=== PATIENT | male | born 1950 | race Caucasian/White ===

== ENCOUNTER 2019-03-03 18:03 | Inpatient (IN) ==
--- NOTE | 2019-03-03 18:34 | PROVIDER DOCUMENTATION ---
HPI-General Adult - General Chief Complaint: Hip Injury Stated Complaint: DIZZY, FALLING Time Seen by Provider: 03/03/19 18:26 Source: patient Allergies/Adverse Reactions: Patient Allergies Allergy/AdvReac Type Severity Reaction Status Date / Time streptomycin Allergy RASH Verified 03/03/19 18:46 Home Medications: Home Medication List Medication Instructions Recorded Confirmed Last Taken Type Aspirin [Aspirin EC] 81 mg PO DAILY 03/03/19 03/03/19 Unknown History Loratadine [Claritin] 10 mg PO DAILY 03/03/19 03/03/19 Unknown History Metformin [Glucophage] 500 mg PO BID 03/03/19 03/03/19 Unknown History Sertraline HCl 100 mg PO BID 03/03/19 03/03/19 Unknown History Simvastatin 40 mg PO DAILY 03/03/19 03/03/19 Unknown History - History of Present Illness -Gen Adult Nature of Presenting Problems: This is a 68yo male who presents with CC of falls and sinus congestion. The patient reports that he was brought her by his friend who was worried because the patient had two falls on their boat today. The patient reports that he was trying to get up on the dock and fell on his back he denies any head injury or LOC. The patient reported that he just lost his balance. Originally he was walking abnormally per his friend, but now is walking normally. The patient does report some sinus congestions and cough with green sputum that has been ongoing for about 3 weeks. He does report a fever of about 100.3, and intermittent shortness of breath. He is currently non-toxic appearing. Review of Systems - Adult - REVIEW OF SYSTEMS - ADULT Constitutional: reports: fever Eyes: reports: no symptoms reported Ears, Nose, Mouth & Throat: reports: sinus problem (congestion) Cardiovascular: reports: no symptoms reported. denies: chest pain Respiratory: reports: other (occasional shortness of breath) Gastrointestinal: reports: no symptoms reported. denies: abdominal pain Genitourinary: reports: no symptoms reported. denies: flank pain Musculoskeletal: reports: no symptoms reported Integumentary: reports: no symptoms reported Neurological: reports: dizziness/vertigo, headache/migraines, loss of balance Psychiatric: reports: no symptoms reported Endocrine: reports: no symptoms reported Hematologic/Lymphatic: reports: no symptoms reported Allergic/Immunologic: reports: no symptoms reported Past History - Adult - PAST MEDICAL HISTORY-ADULT Review of Records: reports: Old Records Reviewed Major Childhood Illnesses: reports: denies history Cardiovascular: reports: hyperlipidemia Respiratory: reports: denies history Gastrointestinal: reports: denies history Obstetrical/Gynecological: reports: denies history Genitourinary: reports: retention, other (BPH) Musculoskeletal: reports: denies history Neurological: reports: denies history Endocrine/Immune: reports: Diabetes Other Conditions: reports: denies history - FAMILY HISTORY Family History: reviewed, not pertinent Physical Exam-General - PHYSICAL EXAM-ADULT Initial Vital Signs Reviewed: Yes - CONSTITUTIONAL General Appearance: appears well, alert, no apparent distress - EYES Eyes: PERRL/EOMI. negative: conjuctival exudate, sclera injected, scleral icterus - HEAD, EARS, NOSE, MOUTH & THROAT HENMT: normocephalic/atraumatic, moist mucous membranes, TMs normal - NECK Neck: negative: meningismus - RESPIRATORY Respiratory: lungs clear, normal breath sounds. negative: rales, rhonchi, wheezing - CARDIOVASCULAR Cardiovascular: regular rate, rhythm, no edema - GASTROINTESTINAL (ABDOMEN) Abdominal Exam: non tender, soft - MUSCULOSKELETAL Extremity: other (strength 5/5 in all extremities, mild tenderness of the right hip.) - SKIN Integumentary: normal color, warm/dry - NEUROLOGIC Neurologic: website admin II-XII nml as tested. negative: facial droop, focal weakness, motor weakness, sensory deficit - PSYCHIATRIC Psych/Mental Status: normal mood/affect, normal thought content, normal thought process Progress - PLAN OF CARE/RESULTS Progress/Plan/Lab Results: Vital Signs - 8 hr 03/03/19 18:07 Temperature 100.9 F H Pulse Rate 100 H Respiratory Rate 16 Blood Pressure 159/81 O2 Sat by Pulse Oximetry 94 L Orders Category Date Time Status CT HEAD W/O CONTRAST [CT] Stat Exams 03/03/19 18:25 Ordered ELBOW 2 VIEWS RIGHT [RAD] Stat Exams 03/03/19 18:26 Ordered XRAY PELVIS W/HIP 2-3VW LT [RAD] Stat Exams 03/03/19 18:26 Ordered Result Diagrams: 03/03/19 20:41 03/03/19 20:41 - EKG 1 Time of EKG reading by physician:: 20:16 EKG Read and Signed by:: Sb Phillips EKG Interpretation (*Must complete 3 of following elements*): Abnormal Rate: 94 Rhythm: sinus with multiple PVCs [place]: normal QRS: normal LA Interval: normal ST Wave: non-specific ST changes Prior EKG Comparison: no prior EKG Comments: mulitple PVCs with concern for bigeminy 2 Time of EKG reading by physician:: 20:14 EKG Read and Signed by:: Sb Phillips EKG Interpretation (*Must complete 3 of following elements*): Abnormal Rate: 94 Rhythm: sinus with PVCx [place]: normal QRS: normal, PVC's LA Interval: normal ST Wave: non-specific ST changes Comments: sinus with mulitple PVCs concerning for bigeminy Departure - Departure Date of Disposition Decision: 03/03/19 Time of Disposition Decision: 21:53 DIAGNOSIS: Symptomatic PVCs, Dizziness Fall Qualifiers: Encounter type: initial encounter Qualified Code(s): W19.XXXA - Unspecified fall, initial encounter Disposition: ADMITTED INPATIENT 09 Certified Medical Emergency: Emergent Condition: Fair Referrals and Follow-Ups: Jacoby Gibson MD [Primary Care Provider] - - Critical Care Note This patient required my direct & personal management of CC.: No Attestation - Physician/ ALLIE Attestation Patient care was provided by Advanced Practice Provider:: No The physician spent face to face time with patient:: Yes Advanced Practice Provider documentation review:: Supervising physician onsite and consulted in the evaluation and care of this patient. The physician did have a face to face encounter with the patient.
--- NOTE | 2019-03-03 18:58 | Diag Imaging Result Doc PS360 ---
EXAM: CT HEAD W/O CONTRAST - 03/03/2019 HISTORY: dizziness, fall TECHNIQUE: CT head without contrast COMPARISON: None. FINDINGS: There is no evidence of intracranial hemorrhage, mass effect, midline shift, or hydrocephalus. There are minimal chronic appearing microvascular ischemic changes. There is no evidence of recent infarct, although acute infarcts may not be immediately visible. There is no evidence of skull fracture. IMPRESSION: No visible acute intracranial abnormality. No hemorrhage or mass effect. This exam was performed using automated exposure control, adjustment of mA or kV according to patient size, and/or use of iterative reconstruction technique. Electronically signed by Peter King 03/03/2019 6:56 PM
--- NOTE | 2019-03-03 19:02 | Diag Imaging Result Doc PS360 ---
EXAM: XRAY PELVIS W/HIP 2-3VW LT - 03/03/2019 HISTORY: fall TECHNIQUE: Left hip and pelvis three views COMPARISON: None. FINDINGS: There is no fracture or dislocation identified. There are oval densities at the midline soft tissue pelvis which presumably relate to dense fecal debris in the rectum, although urinary bladder stones cannot be entirely excluded. IMPRESSION: No evidence of fracture or dislocation. Electronically signed by Peter King 03/03/2019 7:00 PM
--- NOTE | 2019-03-03 19:29 | Diag Imaging Result Doc PS360 ---
EXAM: ELBOW 2 VIEWS RIGHT - 03/03/2019 HISTORY: fall TECHNIQUE: Right elbow two views COMPARISON: None. FINDINGS: There is hypertrophic bony spurring at the posterior olecranon. There is no fracture, dislocation, or distal humeral fat pad elevation identified. IMPRESSION: No evidence of fracture or dislocation. Electronically signed by Peter King 03/03/2019 7:26 PM
--- NOTE | 2019-03-03 20:34 | Diag Imaging Result Doc PS360 ---
EXAM: CHEST-2 VIEWS - 03/03/2019 HISTORY: cough TECHNIQUE: Chest two views COMPARISON: None. FINDINGS: Heart size is normal. Inspiration is mildly shallow. There is mild basilar linear atelectasis or scarring. There is no consolidation, pleural effusion, or pneumothorax identified. IMPRESSION: Mildly shallow inspiration, with mild basilar linear atelectasis or scarring. No other evidence of acute disease. Electronically signed by Peter King 03/03/2019 8:32 PM
[2019-03-03 20:56] LABS: BASO# 0.02 X1000 (0.0-0.2); BASO% 0.2 % (0.0-0.8); EOS# 0.06 X1000 (0.0-0.7); EOS% 0.6 % (0.0-10.0); HEMATOCRIT 42.4 % (42.0-52.0); HEMOGLOBIN 13.8 g/dL (14.0-18.0); IMM GRAN# 0.03 X1000 (0.0-0.04); IMM GRAN% 0.3 % (0.0-0.5); LYMPH% 18.6 % (20.5-51.1); MCH 27.1 PG (27-31); MCHC 32.5 g/dL (33-37); MCV 83.1 FL (81-99); MONO# 1.24 X1000 (0.11-0.59); MONO% 12.8 % (1.7-9.3); MPV 9.7 FL (7.4-10.4); NEUT# 6.51 X1000 (1.4-6.5); NEUT% 67.5 % (42.2-75.2); PLT 180 X1000 (130-400); RDW 14.3 % (11.5-14.5); WBC 9.66 X1000 (4.8-10.8)
[2019-03-03 21:11] LABS: ALB/GLOB RATIO 1.6; ALBUMIN 4.4 g/dL (3.5-5.0); CALCIUM 8.6 mg/dL (8.8-10.2); CREATININE 1.2 mg/dL (0.7-1.2); POTASSIUM 3.7 mmol/L (3.5-5.1); TOTAL BILIRUBIN 0.43 mg/dL (0.20-1.00); TOTAL PROTEIN 7.2 g/dL (6.3-8.3)
--- NOTE | 2019-03-03 22:16 | EKG Report ---
Test Performed on : 03/03/2019 8:14:42 PM Test Reason : CP Blood Pressure : / mmHG Vent. Rate : 094 BPM Atrial Rate : 094 BPM P-R Int : 148 ms QRS Dur : 086 ms QT Int : 370 ms P-R-T Axes : 042 045 074 degrees QTc Int : 462 ms Sinus rhythm. with frequent premature ventricular complexes. ST elevation, consider inferior injury or acute infarct ACUTE CO / STEMI Consider right ventricular involvement in acute inferior infarct Abnormal ECG No previous ECGs available Unconfirmed Result
[2019-03-03 22:21] LABS: INR 1.1; PROTIME 14.4 Seconds (11.0-16.0)
[2019-03-03 22:22] LABS: PTT 30.7 Seconds (22.3-41.8)
[2019-03-04] MEDS ORDERED: ZOFRAN IV PRN (01:10)
[2019-03-04] MEDS: ASPIRIN EC PO SCH (01:14)
[2019-03-04] MEDS ORDERED: NS 1,000 ML IV SCH (01:15)
[2019-03-04] MEDS ORDERED: ASPIRIN EC PO SCH (01:16)
[2019-03-04] MEDS: TYLENOL PO PRN ×2 (01:59→19:50)
[2019-03-04 04:58] LABS: URINE SOURCE CLEAN CATCH
[2019-03-04 05:00] LABS: BILIRUBIN URINE NEGATIVE (NEGATIVE); BLOOD URINE MODERATE (NEGATIVE); COLOR YELLOW; GLUCOSE URINE 150 mg/dL (NEGATIVE); KETONE URINE NEGATIVE (NEGATIVE); LEUKOCYTES URINE LARGE (NEGATIVE); NITRITE URINE NEGATIVE (NEGATIVE); PH URINE 6.5; PROTEIN URINE 100 mg/dL (NEGATIVE); SP GRAVITY URINE 1.021; TURBIDITY URINE HAZY (CLEAR); UROBILINOGEN URINE 2 mg/dL (NORMAL)
[2019-03-04 05:16] LABS: UR AMPHETAMINES QUAL NONE DETECTED (NONE DETECT); UR BARBITUATES QUAL NONE DETECTED (NONE DETECT); UR BENZODIAZEPIN QUAL NONE DETECTED (NONE DETECT); UR CANNABINOIDS QUAL NONE DETECTED (NONE DETECT); UR COCAINE QUAL NONE DETECTED (NONE DETECT); UR METHADONE QUAL NONE DETECTED (NONE DETECT); UR OPIATES QUAL NONE DETECTED (NONE DETECT); UR OXYCODONE QUAL NONE DETECTED (NONE DETECT); UR PCP QUAL NONE DETECTED (NONE DETECT)
[2019-03-04 05:23] LABS: UR EPITHELIAL CELLS <10 /HPF (<10); URINE BACTERIA NEGATIVE /HPF; URINE RBC <10 /HPF (<10); URINE WBC TNTC /HPF (<10)
[2019-03-04 05:43] LABS: URINE CASTS NONE SEEN; URINE CRYSTALS NONE SEEN; URINE YEAST NONE SEEN
[2019-03-04 05:44] LABS: URINE SMALL ROUND CELLS NONE SEEN
--- NOTE | 2019-03-04 06:13 | EKG Report ---
Test Performed on : 03/04/2019 07:07:22 AM Test Reason : Frequent PVCs Blood Pressure : / mmHG Vent. Rate : 067 BPM Atrial Rate : 067 BPM P-R Int : 148 ms QRS Dur : 096 ms QT Int : 460 ms P-R-T Axes : 043 044 058 degrees QTc Int : 486 ms Normal sinus rhythm. Prolonged QT Abnormal ECG When compared with ECG of 03-MAR-2019 20:14, (Unconfirmed) premature ventricular complexes. are no longer present ST no longer elevated in Inferior leads ST no longer depressed in Anterolateral leads Unconfirmed Result
[2019-03-04 06:18] LABS: BASO# 0.02 X1000 (0.0-0.2); BASO% 0.2 % (0.0-0.8); EOS# 0.07 X1000 (0.0-0.7); EOS% 0.8 % (0.0-10.0); HEMATOCRIT 39.6 % (42.0-52.0); HEMOGLOBIN 12.6 g/dL (14.0-18.0); IMM GRAN# 0.02 X1000 (0.0-0.04); IMM GRAN% 0.2 % (0.0-0.5); LYMPH# 1.78 X1000 (1.2-3.4); LYMPH% 19.5 % (20.5-51.1); MCH 26.6 PG (27-31); MCHC 31.8 g/dL (33-37); MCV 83.5 FL (81-99); MONO# 1.42 X1000 (0.11-0.59); MONO% 15.6 % (1.7-9.3); MPV 9.8 FL (7.4-10.4); NEUT# 5.81 X1000 (1.4-6.5); NEUT% 63.7 % (42.2-75.2); PLT 153 X1000 (130-400); RBC 4.74 XMIL (4.7-6.1); RDW 14.4 % (11.5-14.5); WBC 9.12 X1000 (4.8-10.8)
[2019-03-04] MEDS: HUMULIN R SUBQ SCH ×4 (06:28→20:51)
[2019-03-04 06:51] LABS: AGAP 12; BUN 15 mg/dL (8-22); CALCIUM 8.5 mg/dL (8.8-10.2); CHLORIDE 103 mmol/L (98-107); CK PROFILE 71 U/L (24-204); COSMO 285; ESTIMATED GFR > 60; GLUCOSE 152 mg/dL (70-104); POTASSIUM 3.4 mmol/L (3.5-5.1); SODIUM 141 mmol/L (136-145); TCO2 26 mmol/L (25-35)
[2019-03-04] MEDS ORDERED: KLOR-CON PO ONE (07:16)
[2019-03-04] MEDS: ROCEPHIN 1 GM in NS 50 ML IV SCH (08:13)
[2019-03-04] MEDS: CLARITIN PO SCH (08:13)
--- NOTE | 2019-03-04 08:40 | HISTORY AND PHYSICAL ---
PRIMARY CARE PROVIDER: Dr. Jacoby Gibson. CHIEF COMPLAINT: Dizziness and a fall. HISTORY OF PRESENT ILLNESS: Mr. Corea is a 68-year-old, male who presented to the ER this afternoon after having several episodes of dizziness over the past 2 to 3 days. His son, who is at bedside, and the patient himself both report that today, they were on their boat fishing. His father was standing in an upright position, was not bent over and was not squatting as well. He went to step up from the main part of the boat up one step to the end where the chair is, where you sit and fish. The patient states when he went to step up, he became dizzy and fell straight back. He denied hitting his head. He denied any loss of consciousness. He denied any injury or pain from the fall, though has been reporting that he has been having these dizzy episodes as previously mentioned. He states they have occurred when he was standing upright. They have occurred when he has gone from lying to sitting, from sitting to standing, or when he bent over and stood back up, or squatted down and stood back up. He denies any headache, visual disturbances, chest pain, palpitations, shortness of breath, or cough. He denies any abdominal pain. He denies any nausea, vomiting, or diarrhea. He denies any dysuria or urinary frequency, though the patient does have a history of prostate problems. He denied any pain, numbness, tingling, or swelling in extremities. The patient's son has reported that he has had a low-grade fever at home with the highest being 100.3. I would like to add that the patient did deny shortness of breath, though he did report a cough that was occasionally productive with greenish- colored sputum and that he has been reporting sinus congestion, drainage, and pressure. The patient was noted in the ER to be having frequent unifocal PVCs on his bedside telemetry monitoring. I did ask the patient if he had a history of this in the past and he reports yes, that he has been told he has PVCs in the past, though he states that he has not seen a currency examiner in quite some time. He has had a stress test before but believed this was several years ago. Upon evaluation in the ER, the patient was noted to be running a low-grade fever of 100.7. White blood cell count was 9660. Chemistries were pretty unremarkable. CK was 79, troponin was less than 0.01. Urine drug screen was negative. Chest x-ray showed mildly shallow inspiration with mild bibasilar linear atelectasis or scarring. There was no other evidence of acute disease. This was per radiology. Right elbow x-ray did not show any evidence of fracture or dislocation. X-ray of the pelvis with a left hip view did not show any evidence of fracture or dislocation. CT of the head without contrast did not show any visible acute intracranial abnormality. There was no hemorrhage or mass effect. His EKG did show sinus rhythm with frequent premature ventricular complexes. This is at a rate of 94 with a QTc of 462. Urinalysis did show positive signs of infection with large leukocytes, too numerous to count white blood cells. Though the patient is alert and oriented to person, place, time, and situation, he did seem a little slow to respond to questions at times and almost seemed as though he was having trouble finding the words to answer. Though it did take him a little bit longer it seemed to answer questions, he did ultimately answer them and answered them correctly. Speech was clear and understandable. His son at bedside did actually state as well that he seemed a little off from his normal. At this time, the patient will be admitted for further treatment and evaluation of his symptomatic PVCs, dizziness, fever, and UTI. REVIEW OF SYSTEMS: A 14 point review of systems was conducted with the patient. All were negative except for pertinent positives mentioned above in the HPI. PAST MEDICAL HISTORY: 1. Diabetes mellitus type 2. 2. Hyperlipidemia. 3. BPH. 4. Depression. PAST SURGICAL HISTORY: 1. Cholecystectomy. 2. TURP. 3. Right knee surgery. 4. Vasectomy. SOCIAL HISTORY: The patient is a former smoker, though only briefly smoked for a few years at approximately a 4th a pack of cigarettes per day, though has not smoked in several years, greater than 40. He denies any alcohol or illicit drug use. FAMILY HISTORY: Positive for his mother having a stroke. There is no known family medical history in his father. He does have an older sister who with an unknown cancer, who also had liver cirrhosis. He had another sibling that did have diabetes mellitus. ALLERGIES: Patient reports allergies to streptomycin. HOME MEDICATIONS: 1. Aspirin 81 mg p.o. daily. 2. Claritin 10 mg p.o. daily. 3. Glucophage 500 mg p.o. b.i.d. 4. Sertraline 100 mg p.o. b.i.d. 5. Simvastatin 40 mg p.o. daily. DIAGNOSTIC DATA: Laboratory results: White blood cell count is 9660, hemoglobin 13.8, hematocrit 42.4, platelet count 180,000. PT 14.4, INR 1.1, PTT is 30.7. Sodium 142, potassium 3.7, chloride 102, serum bicarb is 27, BUN 16, creatinine 1.2, with a GFR of 60, glucose 159, calcium 8.6, magnesium is 2. Liver function tests within normal limits. CK 79, troponin less than 0.01. TSH was 1.88. Urine drug screen was negative. Urinalysis was obtained via clean catch. It was positive for protein, glucose, blood, large leukocytes, and too numerous to count white blood cells. It was negative for ketones, nitrites, bacteria, or yeast. EKG did show sinus rhythm with frequent premature ventricular complexes. He had a rate of 94 with a QTc of 462. A chest x-ray showed mildly shallow inspiration with mild bibasilar linear atelectasis or scarring but no other evidence of acute disease. Right elbow x-ray did not show any evidence of fracture or dislocation. X-ray of pelvis with a left hip view did not show evidence of fracture or dislocation. CT of the head without contrast showed no visible acute intracranial abnormality. No hemorrhage or mass effect. PHYSICAL EXAMINATION: VITAL SIGNS: Temperature 99.4 degrees, heart rate 96, respirations 20, blood pressure 158/85, oxygen saturation is 98% on room air. GENERAL: Mr. Corea is a pleasant, 68-year-old, male. He was resting on the ER stretcher. He was in no acute distress. He was awake, alert, and able to answer questions appropriately. HEENT: Head is atraumatic, normocephalic. Pupils are equal, round, reactive to light, were 3 mm bilaterally and brisk. Bilateral tympanic membranes were pearly solis in color. There was a positive light reflex noted. There was no erythema present. Oral mucosa was moist. Oropharynx was clear. The patient did have tenderness noted upon palpation of the frontal and maxillary sinuses. NECK: Supple. Trachea midline. CARDIOVASCULAR: Patient has S1-S2 present. No murmurs, gallops, rubs appreciated. The patient does have irregular rate with an irregular rhythm. PULMONARY: Patient has symmetrical chest expansion bilaterally. Lung sounds are clear to auscultation in bilateral full clark. ABDOMEN: Soft, nontender, nondistended. Bowel sounds are present in all 4 quadrants, were normoactive. EXTREMITIES: No cyanosis or edema noted. Pulse, motor, and sensory were intact in all extremities. Radial and pedal pulses were 2+ bilaterally. INTEGUMENTARY: The patient's skin is pink, warm, and dry. NEUROLOGICAL: Patient is alert and oriented to person, place, time, and situation. He is able to move all extremities. He did have equal hand grasps and muscle strength bilaterally. There was no arm drift noted. There was no facial droop present. The EOMs were intact. He is denying any numbness or tingling. The only thing that I did notice is that the patient did seem slow to respond to questions at times and it did seem like he was having trouble finding the words initially before answering, though would eventually answer appropriately. His speech was clear and understandable. Other than this, there were no other focal neurological deficits noted other than he has been reporting dizziness. ASSESSMENT AND PLAN: 1. Symptomatic premature ventricular contractions. The patient does report that he believes he has a history of this in the past, though reports that he has not seen cardiology in quite some time and that his last stress test was several years ago. He is reporting some dizziness. This could be related to his premature ventricular contractions. The patient did have an episode earlier in the day prior to arriving to the emergency room where he became dizzy and lost his balance, causing him to fall. He denies any chest pain or palpitations. Cardiac enzymes at this time have been negative. Further evaluation of this will continue with a series of cardiac enzymes. We will repeat an electrocardiogram in the morning. We have also ordered an echocardiogram as well. We have placed a consult with cardiology and we will await their evaluation and further recommendations for management. He will be placed on the PVC unit with continuous cardiac telemetry and frequent vital signs as well as neurological checks. 2. Dizziness. We will continue with treatment as mentioned above for #1. I would like to add that the patient's head CT was negative for any acute intracranial abnormalities. 3. Urinary tract infection. For treatment of this, we have placed the patient on antibiotic coverage of Rocephin. We have ordered a urine culture. We will await these results and continue to follow. 4. Diabetes mellitus. We will place the patient on a sliding scale regular insulin per low-dose protocol. We will do pattern fingerstick blood sugars. 5. Hyperlipidemia. We will continue the patient on Zocor. 6. Deep vein thrombosis prophylaxis will be provided with sequential compression devices. 7. The patient was placed on the PVC unit for close monitoring. He will have continuous cardiac telemetry, vital signs, and neurological checks every 4 hours. Do strict intake and output. He will be on a diabetic and heart healthy diet. We will repeat a CBC, BMP, and cardiac enzymes in the morning. We will provide some gentle intravenous hydration as well of normal saline at 75 mL per hour x1 bag. Further orders and recommendations pending hospital course, diagnostic studies, and physician evaluation. Dictated by NADEEM Torres for Raheem Chang MD cc: Raheem Chang MD
--- NOTE | 2019-03-04 09:27 | EKG Report ---
Test Performed on : 03/04/2019 09:54:44 AM Test Reason : Frequent PVCs, Dizziness Blood Pressure : / mmHG Vent. Rate : 082 BPM Atrial Rate : 082 BPM P-R Int : 146 ms QRS Dur : 090 ms QT Int : 412 ms P-R-T Axes : 044 040 049 degrees QTc Int : 481 ms Sinus rhythm. with occasional premature ventricular complexes. and premature atrial complexes. Prolonged QT Abnormal ECG When compared with ECG of 04-MAR-2019 07:07, (Unconfirmed) premature ventricular complexes. are now present premature atrial complexes. are now present Unconfirmed Result
--- NOTE | 2019-03-04 09:55 | CARDIOLOGY CONSULTATION ---
DATE: 03/04/2019 CONSULTATION REQUESTED BY: Hospitalist service. REASON FOR CONSULTATION: Ventricular arrhythmia. HISTORY: Mr. Corea is a 68-year-old male who states that for the past 1 month, having suffering from what he describes as "sinus congestion." He was also having coughing fits. About 4 weeks ago or so, he went to see his primary doctor, Jacoby Gibson, and the MEDICAL DEVICE ENGINEER at the office put him on antibiotics which he took for 10 days. He discontinued the medication about 2 weeks ago. The patient is an avid fisherman and he goes fishing to [place] with his friend. He went there yesterday and while he was on the boat, he felt like he had lost his balance. He could not stand on his feet and he fell, injuring his right hip. Then he got back home from fishing about 1 p.m. and then he noted that he could not walk straight. He was really unstable on his feet. He denies having sensation of vertigo. No objective nor subjective vertigo. No nausea. At that time, they brought him to the emergency room. In the ER, they did the usual rule out myocardial infarction. They did 2 troponins, 2 CPKs were negative. His EKG initially showed a lot of artifact, however, they noted PVCs. Then they did also a CT scan of the head that showed no visible acute intracranial abnormality. Chest x-ray shows mildly shallow inspiration with mild basilar linear atelectasis. No other evidence of acute disease. White count is normal. BUN and creatinine are normal. Potassium was low this morning, however, at the time of presentation was normal. Magnesium was normal. The patient denied having chest pain or dyspnea. Because of the presence of PVCs on the EKG, they somehow built the case as a possible symptomatic ventricular arrhythmia and they admitted the patient to the hospital requesting this consultation. PAST MEDICAL HISTORY: Negative for heart disease. He says that many years ago his , who is a nurse, noted that he had an irregular pulse. He recalls being referred to [facility] where they did a stress test. He remembers that as his heart rate would go up on the 2nd stage of the Waqar protocol, the irregular heart beat disappear. He has never had a syncopal episode. No myocardial infarction. The patient carries a diagnosis of diabetes mellitus type 2. He is also being treated for hyperlipidemia. He has never had a stroke. SURGICAL HISTORY: He has had TURP done at [place] about 3 months ago. He has had also arthroscopic right knee surgery. SOCIAL HISTORY: He is a . His about a year ago. He has 1 son who is 42 years of age. 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 He has never been a smoker nor a drinker. FAMILY HISTORY: Really noncontributory. HOME MEDICATIONS: At this time include 1. Aspirin 81 mg daily. 2. Loratadine 10 mg daily. 3. Metformin 500 twice a day. 4. Sertraline 100 twice a day. 5. Simvastatin 40 mg daily. ALLERGIES: Streptomycin. REVIEW OF SYSTEMS: Generally, he has been very active. His symptoms just started about a month ago initially with the sinus congestion and daily with being unsteady on his feet. This morning, we made the patient walk down the santos, escorted by nurse and nurses education assistant, and he did not show any obvious unsteadiness. PHYSICAL EXAMINATION: Vital signs: Blood pressure is 120/63, temperature 98.4 degrees, pulse 75, respirations 22. General: The patient is awake, alert, in no distress. HEENT: Unremarkable. Chest: Clear to auscultation and percussion. Heart: Heart sounds regular and rhythmic. Occasional extrasystoles. Abdomen: Nontender. Extremities: Show no obvious edema. He has very good pulses. Neurologic: He follows commands. Moves 4 extremities. I have looked at the patient's 12 lead EKG that shows sinus rhythm, possible early transition, but really no Q-waves or any dramatic abnormality. He does not seem to be in heart failure. IMPRESSION: 1. Patient who presents with unsteadiness on his feet/giddiness. This sounds more like cerebellar dysfunction or neurological dysfunction rather than anything that would be construed as orthostatic hypotension.Consider doing Brain MRI, look for brainstem/cerebellar CVA. 2. History of diabetes mellitus. 3. Ventricular bigeminy. Likely benign. Patient has history of having premature ventricular complexes in the past. 4. Abnormal Urine analysis, pyuria. consider low grade sepsis (smoldering?). Patient had TURP 3 months ago. RECOMMENDATION: At this time, we will check a pro BNP level, inflammatory markers,the patient's urinalysis is quite abnormal : pyuria. Certainly, urinary tract infection is something that could be presenting in an atypical manner in a diabetic patient. Next, we will arrange for a myocardial perfusion stress test and an echocardiogram. I would suggest to do a brain MRI to make sure that he has not suffered any subcortical stroke that may have been missed by the CT scan of the head. I do recommend to get a neurology consultation, particularly if all the heart tests glove turner and former automatic to be normal. Thank you for asking us to participate in his evaluation. cc: Esdras Santana MD [facility]
--- NOTE | 2019-03-04 10:36 | PROGRESS NOTE ---
DATE: 03/04/2019 SUBJECTIVE: This morning, I have seen and examined Mr. Corea, who got admitted yesterday. Mr. Corea refers that he was fishing, sitting down, and then got up to step at the edge of the boat, and he felt dizzy and fell down. He does not remember losing consciousness. However, according to Mr. Corea, this is a recurrent problem for him. He gets dizzy every now and then, whether walking or standing. He gets momentary dizziness that he has to stop. This has been going on for the past more than 5 years. Mr. Corea recalled an incident about 4 years ago when he was working. He felt dizzy and at that time, he did pass out. Mr. Corea also gave a history that he did have some irregular heartbeats before and he was evaluated in [place] years ago. This morning, Mr. Corea refers to be doing okay, has not had any more episodes of dizziness. OBJECTIVE: Current Vital Signs: Blood pressure is 120/63, his pulse is 75, respirations are 22, temperature is 98.4 degrees. He had a temperature of 101.3 degrees. General Examination: Mr. Corea is a 68-year-old, gentleman. He is in bed. He is not in any cardiopulmonary distress. HEENT: Mucosa is pink and moist. Anicteric. Acyanotic. Neck: Supple. Chest: Good air entry bilaterally. There were no crepitations, no rhonchi. Cardiovascular: Regular rate and rhythm. There are occasional extrasystolic beats. No murmurs, no rubs. Abdomen: Soft, nontender. Bowel sounds present. Extremities: No pedal edema. LIBRARY PAGE: The patient is awake, alert, oriented. Mr. Corea has no motor deficit. His sensation is intact. His pupils are about 3 mm and they are reactive. Normal corneal reflex. He does not seem to have any cranial nerve abnormality. I did not see any nystagmus on his eye examinations. Laboratory Data: His CBC is only remarkable for mild normocytic anemia. His chemistry shows a potassium of 3.4. Rest of chemistry is completely within normal range. His troponin has been done two times and is negative. His TSH is 1.8. Imaging Studies: A CT scan of the head showed no visible acute intracranial abnormality. No hemorrhage or mass. An elbow x-ray showed no evidence of a fracture. A hip and pelvic x-ray showed no evidence of a fracture. A chest x-ray showed mildly shallow inspiration. No evidence of acute disease. The patient did have an initial EKG that did have bigeminy. Subsequent EKGs this morning at 8 o'clock showed a normal sinus with occasional PVCs. His urinalysis showed leukocytosis with rqx-ihjimoan-wo-count WBCs. There was also moderate blood. Toxicology is completely negative. ASSESSMENT: 1. Dizziness with collapse. According to Mr. Corea, this has been an ongoing problem for the past 5 years. He was, at one point, evaluated in [facility] for possible cardiac- related which, according to him, nothing really came out. He is currently asymptomatic. We are going to continue his cardiac workup and follow up with further recommendations from cardiology. I think it is also reasonable to rule out any neurological cause. Neurology will be consulted. MRI has been ordered. 2. Recently treated sinusitis. 3. Pyuria, questionable for urinary tract infection. According to Mr. Corea, he had a transurethral resection of the prostate done about 3 months ago. He does say that occasionally, he has some burning and he also has some leak. He is currently being covered on antibiotics until we have the culture report. 4. Diabetes mellitus, controlled on metformin. This will be withheld during the hospital course. We will use insulin for glucose control. cc: Mark Wright MD
[2019-03-04] MEDS: ZOCOR PO SCH (20:51)
[2019-03-05 06:00] LABS: BASO# 0.01 X1000 (0.0-0.2); BASO% 0.1 % (0.0-0.8); EOS# 0.11 X1000 (0.0-0.7); EOS% 1.2 % (0.0-10.0); HEMATOCRIT 40.8 % (42.0-52.0); HEMOGLOBIN 13.5 g/dL (14.0-18.0); LYMPH# 1.35 X1000 (1.2-3.4); LYMPH% 14.9 % (20.5-51.1); MCH 27.2 PG (27-31); MCHC 33.1 g/dL (33-37); MCV 82.1 FL (81-99); MONO# 1.15 X1000 (0.11-0.59); MONO% 12.7 % (1.7-9.3); MPV 10.1 FL (7.4-10.4); NEUT# 6.44 X1000 (1.4-6.5); NEUT% 71.1 % (42.2-75.2); PLT 160 X1000 (130-400); RBC 4.97 XMIL (4.7-6.1); RDW 14.1 % (11.5-14.5); WBC 9.06 X1000 (4.8-10.8)
[2019-03-05 06:28] LABS: AGAP 14; BUN 12 mg/dL (8-22); CALCIUM 8.3 mg/dL (8.8-10.2); CHLORIDE 98 mmol/L (98-107); COSMO 273; CREATININE 0.9 mg/dL (0.7-1.2); ESTIMATED GFR > 60; GLUCOSE 149 mg/dL (70-104); POTASSIUM 3.7 mmol/L (3.5-5.1); SODIUM 135 mmol/L (136-145); TCO2 23 mmol/L (25-35)
[2019-03-05] MEDS: HUMULIN R SUBQ SCH ×4 (06:28→22:45)
--- NOTE | 2019-03-05 07:32 | EKG Report ---
Test Performed on : 03/05/2019 08:05:12 AM Test Reason : arrhythmia/dizziness Blood Pressure : / mmHG Vent. Rate : 098 BPM Atrial Rate : 098 BPM P-R Int : 130 ms QRS Dur : 088 ms QT Int : 374 ms P-R-T Axes : 055 060 059 degrees QTc Int : 477 ms Sinus rhythm. with occasional premature ventricular complexes. Otherwise normal ECG When compared with ECG of 04-MAR-2019 09:54, (Unconfirmed) premature atrial complexes. are no longer present Unconfirmed Result
--- NOTE | 2019-03-05 08:19 | ECHO REPORT ---
ORDER DATE: 03/04/2019 INTERPRETING PHYSICIAN: Dr. Santana REQUESTING PHYSICIAN: CLINICAL INDICATIONS: This is a 68-year-old male with ventricular arrhythmia. M-MODE MEASUREMENTS: Right ventricle: cm. Left ventricle end diastole: 4.7 cm. Left ventricle end systole: 2.6 cm. Posterior wall: 1.1 cm. Interventricular septum: 1.1 cm. Left atrium: 4.1 cm. Aortic root: 3.6 cm. SUMMARY OF 2-DIMENSIONAL IMAGIN. The left ventricular function is normal. Ejection fraction is 60% to 65%. There is no wall motion abnormality noted. 2. Aortic valve looks normal. Color flow mapping is unremarkable. 3. Pulmonic valve looks normal. Color flow mapping is unremarkable. 4. Mitral valve looks normal. Color flow mapping is unremarkable. 5. Pulse wave Doppler of mitral inflow shows normal E/A ratio. 6. Tissue Doppler of septal and lateral mitral annulus averages 9 cm. 7. Pulmonary venous flow is normal. There is no diastolic dysfunction. 8. Tricuspid valve looks normal. Color flow mapping is unremarkable. 9. There is no pulmonary hypertension. 10.The atria did not appear to be dilated. 11.The left atrium may be slightly generous; however, no obvious significant dilatation is noted. 12.The patient is not in a low cardiac output state. 13.There is no pericardial effusion, mass or thrombus. 14.The inferior vena cava is not dilated. CONCLUSIONS: In summary, this echocardiographic study appears to be well within normal limits. Clinical correlation is recommended. cc: Esdras Santana MD
[2019-03-05] MEDS ORDERED: LEXISCAN ONE (08:50)
[2019-03-05] MEDS: ROCEPHIN 1 GM in NS 50 ML IV SCH (10:30)
[2019-03-05] MEDS: CLARITIN PO SCH (10:31)
[2019-03-05] MEDS: ASPIRIN EC PO SCH (10:31)
--- NOTE | 2019-03-05 12:18 | Diag Imaging Result Doc PS360 ---
MRI BRAIN W/O CONTRAST - 03/04/2019 INDICATION: suspect subcortical CVA COMPARISON: Head CT 03/03/2019 FINDINGS: There is no area of restricted diffusion. The ventricles and sulci are normal in size and contour. No intracranial mass or hemorrhage. Midline structures including the optic chiasm and pituitary are normal. IMPRESSION: Negative exam. Electronically signed by Peter Yang 03/05/2019 12:16 PM
--- NOTE | 2019-03-05 13:10 | PROGRESS NOTE ---
DATE: 03/05/2019 SUBJECTIVE: This morning, Mr. Corea refers to be doing a lot better. Denied any new complaints. He said he has been up. He did not feel any dizzy. However, early, early this morning when he woke up from bed to use the restroom, he felt confused. OBJECTIVE: Current Vital Signs: Blood pressure is 152/66, pulse of 99, respirations 22, temperature is 98.4 degrees, the patient is saturating 96% on room air. General: Mr. Corea is a 68-year-old male. He was in bed. No distress. HEENT: Mucosa is pink and moist. Anicteric. Acyanotic. Neck: Supple. Chest: Clear to auscultation. There were no crepitations, no rhonchi. Cardiovascular: Regular rate and rhythm with occasional extrasystolic beats. GI: Abdomen is soft, nontender. Bowel sounds were present. ANALYTICS LEAD: The patient is awake, alert, oriented. There is no focal neurological deficit. IMAGING AND LABORATORY DATA: CBC is completely within normal range. Chemistry is also normal with mild hyponatremia, glucose of 149. The patient's echocardiogram seems to suggest normal findings with ejection fraction of 60% to 65% percent. An MRI, which was done this morning, is completely normal. We are still pending the results on the carotid ultrasound. EKG this morning shows a normal sinus rhythm with occasional PVCs. ASSESSMENT: 1. Recurrent dizziness with occasional collapse. Will continue with the workup. The patient is also pending Neurology consult. 2. Sinusitis. Mr. Corea was actually being treated for this condition before he got admitted. He was started on intravenous ceftriaxone. We will switch this to oral Augmentin. 3. Sterile pyuria cultures have been negative. 4. Status post transurethral resection of prostate. Noted. 5. Diabetes mellitus, currently controlled. In general, I think Mr. Corea is doing well. He has been evaluated by Cardiology. Per the note, it appears that they do not think his presentation is related to cardiac event, and they have recommended Neurology workup. Dr. Santana himself ordered an MRI, which has come back negative. We will get Neurology to evaluate him. We are still pending the carotid report and further recommendations from Cardiology. cc: MD WILLIAN Diamond
--- NOTE | 2019-03-05 14:58 | Diag Imaging Result Document ---
PROCEDURE NAME: MYOCARDIAL PERF SCAN, STR/REST - 03/04/2019 STUDY: Rest/stress walking Lexiscan myocardial perfusion study. INDICATION: Ventricular arrhythmia. Abnormal EKG. Suspect coronary heart disease. Possible stroke. DESCRIPTION: The patient came into the nuclear lab and received rest injection of technetium 99 sestamibi 12.8 mCi. Multiple tomographic views of the cardiac structures were obtained at rest. Subsequently, the patient underwent a walking Lexiscan protocol, and 0.4 mg of Lexiscan infused. At peak infusion, he was injected with technetium 99 sestamibi 36.4 mCi. Multiple tomographic views of the cardiac structures were obtained following the completion of the exercise protocol. SUMMARY OF THE ELECTROCARDIOGRAPHIC PORTION OF THE STUDY: Resting ECG showed sinus rhythm with a rate of 100 beats per minute. Resting blood pressure is 125/80. Resting ECG showed PVCs. During the protocol, the heart rate increased to 123 beats per minute. Blood pressure went up to 160/79. There were some instances of ventricular couplets and ventricular bigeminy. The patient reported no chest pain, shortness of breath, or palpitations. Following completion of the test, heart rate and blood pressure returned back to their baseline. In summary, the electrocardiographic response to a walking Lexiscan protocol appears to be nonspecific. The patient demonstrates frequent PVCs with some instances of ventricular bigeminy as well as ventricular couplets. SUMMARY OF THE MYOCARDIAL PERFUSION PORTION OF THE STUDY: Poststress tomographic views of the left ventricle showed normal homogeneous distribution of radiotracer throughout the entire left ventricular myocardium. There was no evidence of any postexercise defect. The rest images showed normal perfusion. Polar plots revealed the same. There is no evidence of any inducible ischemia nor myocardial scar. Gated SPECT shows normal left ventricular systolic function with ejection fraction on the rest images of 67%, poststress 74%. Using the Myometrix protocol, resting ejection fraction is 63% poststress is 62%. The ventricular volumes are normal. There is no wall motion abnormality. The lung/heart ratio is normal. The TID is normal. SUMMARY: This study shows: 1. Nonspecific electrocardiographic response to a walking Lexiscan protocol. The patient demonstrates frequent premature ventricular contractions. 2. Normal poststress myocardial perfusion scan. There is no scintigraphic evidence of pharmacologically induced myocardial ischemia utilizing the walking Lexiscan protocol. The patient achieved 81% of maximum predicted heart rate for his age with a good blood pressure response. 3. Normal left ventricular systolic function with ejection fraction of 62% using the Myometrix protocol and 74% using the [employer] protocol. Clinical correlation recommended. This study would suggest low risk for ischemic events. cc: Esdras Santana MD
--- NOTE | 2019-03-05 18:35 | CONSULTATION ---
DATE OF CONSULTATION: 03/05/2019 HISTORY OF PRESENT ILLNESS: Mr. Corea is 68 years old and he has had some dizziness, unsteady gait, and falling. History from the patient is that problems began at least a year ago. Initially, he would notice this mainly if he had walked and was tired. He would feel weak all over, dizzy, weak in the legs, "drunk" without focal features. Sometimes, he would stumble and fall. He was always able to get up without assistance. He did not notice focal clumsiness in 1 limb more than another. Falls were not associated with altered awareness or unconsciousness. Sometimes his vision would seem blurred but there was never focal loss of visual field. In the last few months, episodes have been more frequent and he feels "shaky" with these spells. He reports shaking equally in the left and right arms mostly when active, not at rest. There is no history of diagnosed stroke, seizure, head injury, other neurologic event. He has not used ethanol recently. He has longstanding diabetes mellitus and some peripheral neuropathy. He reports caffeine intake is 2 cups of coffee each morning and a few caffeinated soft drinks during the day. This level of caffeine intake has been chronic and was never associated with tremor in the past. IMAGING: Includes brain MRI done yesterday without contrast showing no area of restricted diffusion, nothing remarkable, no mass or hemorrhage, no infarction, no focal findings. He has had some arrhythmia and has had Cardiology evaluation here. Echocardiogram showed no source of embolus. Carotid ultrasound has been done with report pending. He has had cardiac monitoring by telemetry. VITAL SIGNS: Blood pressures have been recorded 120s-170s. Heart rate has been recorded 70s-100. He had temperature recorded 101.3 shortly after admission, mostly afebrile since then. LABORATORIES: Lab shows blood sugars 140s-160s, very mild hypocalcemia, proBNP 1711, total cholesterol 128, LDL 79, VLDL 16, HDL 37, triglycerides 78, normal TSH. Urine drug screen was all negative. PHYSICAL EXAMINATION: On exam, Mr. Corea is awake, alert, attentive, and appropriate. Speech is not dysarthric. Language function is intact. Voice is a little bit hoarse, but not parkinsonian. Recent and remote memory are good. He is completely oriented. Language function is intact on bedside testing. Head and neck are unremarkable. Visual clark are full tested by confrontational finger counting. Extraocular movements are full. Facial motility is symmetric. Gag is intact. Tongue is midline. Hearing is fair. Shoulder shrug is equal. Strength is normal in the arms and legs. He did well on ossdyc-mt-nepo testing bilaterally. I do not see definite tremulousness, tremor, ataxia. Gait is normal. Romberg is absent. He performed heel-to-toe tandem walking without assistance. Reflexes are trace at the ankles and 1+ symmetrically at the wrists. Plantar response is silent bilaterally. Proprioception is good at the great toe MTP joint bilaterally. He has slightly diminished pinprick and light touch appreciation in a stocking pattern bilaterally. Pinprick is intact over the hands bilaterally. Hands and feet are warm. IMPRESSION: 1. Reported periods of shaking, unsteady gait, falling, drunk feeling. His description sounds like ataxia, but I do not find ataxic features on gait testing at the bedside today. Sometimes, this seemed to be associated with being tired after being active for a while. History does not sound like claudication, although, he does risk factors for ischemic problems. Myasthenia would not be impossible, but his report is not typical. He may be tremulous at times, but I do not see a classifiable tremor now. He reports caffeine has not aggravated his trembling. I do not have a definite diagnosis. Negative MRI is reassuring and I do not have suggestions for further workup right now. I encouraged him to be aggressive with management of his medical problems, to take his medicines as directed, to be careful with caffeine and to be careful with gait and activities. 2. He has clinical features of peripheral neuropathy, presumed diabetic neuropathy. Peripheral neuropathy would raise his risk for falling associated with any type of ataxia. I do not think workup for this problem would change his management overall. I will be glad to see him as an outpatient if problems persist. Thanks for asking Neurology to see Mr. Corea. cc: MD WILLIAN Castillo III
[2019-03-05] MEDS: AUGMENTIN PO SCH (22:45)
[2019-03-05] MEDS: ZOCOR PO SCH (22:45)
[2019-03-05] MEDS: TYLENOL PO PRN (23:48)
[2019-03-06] MEDS: HUMULIN R SUBQ SCH ×2 (06:17→11:04)
[2019-03-06 07:43] VITALS: BP 136/81
[2019-03-06] MEDS: CLARITIN PO SCH (08:31)
[2019-03-06] MEDS: AUGMENTIN PO SCH (08:31)
[2019-03-06] MEDS: ASPIRIN EC PO SCH (08:31)
--- NOTE | 2019-03-06 09:10 | CARDIOLOGY PROGRESS NOTE ---
DATE: 03/06/2019 CHIEF COMPLAINT: Unsteadiness, ventricular arrhythmia. SUBJECTIVE: Mr. Corea basically feels fine. Last night, he did have a fall in his room, however, the reason for the fall was that his foot got caught in the blanket. He did not lose consciousness. Telemetry indicates that he has had episodes of ventricular bigeminy overnight lasting up to 10 minutes, however, they have been at 3 o'clock in the morning. His fall his happened at 9 p.m. So there is no connection with any arrhythmia. Dr. Aguilera from Neurology has evaluated him yesterday and he found some issues with unsteady gait on the history suspicious for ataxia, however, he could not confirm that on physical exam. He has given him some general hygienic recommendations. His carotid ultrasound did not show indication of any high-grade obstruction within the carotid vessels or vertebral arteries. I looked at his myocardial perfusion stress test that was done yesterday with him walking on the treadmill using a modified Waqar protocol and infusion of Lexiscan. EKG showed no ischemia. There were some PVCs, however, he did not experience any dizziness or near syncope during the stress test. His perfusion images came back normal with normal ejection fraction. His echocardiogram from 03/04 also showed normal findings with normal valvular structures and normal LV function. His blood work also indicates normal BUN and creatinine, potassium is 3.7, sodium is 135. His lipid panel today, cholesterol is 128, triglycerides 78, LDL 79, HDL 37. Brain MRI 03/04 is negative. OBJECTIVE: Vital signs: Today, blood pressure 136/81, temperature 98.5, pulse 74, respirations 20. General: The patient is awake, alert, in no distress. HEENT: Unremarkable. Chest: Clear to auscultation and percussion. Heart: Sounds are regular and rhythmic. No gallop or murmur. Abdomen: Nontender, soft. No masses. No hepatomegaly. Extremities: Showed good pulses. No peripheral edema. Neurologic exam: Follows commands, moves all 4 extremities. IMPRESSION: 1. Patient presented basically with unsteadiness on his feet, sensation of falling, and actual fall, without true syncope. 2. Incidental finding of ventricular bigeminy/probably benign ventricular arrhythmia. 3. Patient has pyuria. Of note, his C-reactive protein is elevated at 73.57 mg/L which is about 15 times baseline, and his sedimentation rate was also elevated. His ProBNP level was 1711 pg/mL which is about 6 times to 7 times baseline. That may indicate some diastolic dysfunction of left ventricle or some other systemic process. RECOMMENDATIONS: At this time, I really do not have any strong feeling about putting this patient on any specific cardiac medication. Because his blood pressure was noted to be elevated on several occasions during this admission, perhaps a combination of low-dose beta-jacques with angiotensin jacques would be reasonable, however, we have not answered the question of whether or not there is an inflammatory process in the genitourinary tract. That really has to be addressed. We will discuss that with the Hospitalist service. From my perspective, he can probably be discharged at the earliest convenience of the Primary service. cc: Esdras Santana MD
--- NOTE | 2019-03-06 09:56 | PROGRESS NOTE ---
DATE: 03/06/2019 Mr. Corea reports he got his foot tangled up in the bed covers and fell last night. This was not related to the gait difficulty that was his chief complaint. He has not had any further episodes of dizziness, stumbling, falling. We discussed his negative workup to this point. I do not find a definite neurologic problem. I do not have any suggestion from a neurology standpoint right now. I encouraged him to be careful with gat and activities. I will be glad to see Mr. Corea again as an outpatient, if needed. Thanks for asking us to see him here. cc: MD WILLIAN Castillo III
--- NOTE | 2019-03-07 10:28 | Carotid Study ---
DATE: 03/04/2019 PROCEDURE: Carotid duplex study. REFERRING PHYSICIAN: Esdras Santana MD. READING PHYSICIAN: Jarred Sher MD. TECH: [employer]. INDICATIONS: Dizziness and unsteady gait. FINDINGS: There is no significant atherosclerotic disease in either carotid system. There is antegrade vertebral flow bilaterally. The percent stenosis is 0-39% bilaterally. PHYSICIAN INTERPRETATION: Normal carotid imaging study. cc: MD Esdras Mathias MD
--- NOTE | 2019-03-07 13:25 | DISCHARGE SUMMARY ---
ADMISSION DATE: 03/03/2019 DISCHARGE DATE: 03/06/2019 ADMISSION DIAGNOSES: 1. Symptomatic premature ventricular contractions. 2. Dizziness. 3. Urinary tract infection. 4. Diabetes. 5. Dyslipidemia. DIAGNOSES AT TIME OF DISCHARGE: 1. Recurrent dizziness with occasional collapse. So far, neurological workup has been unremarkable. The patient was evaluated by Dr. Aguilera. 2. Sinusitis. 3. Sterile pyuria with negative culture. 4. Status post transurethral resection of prostate. The patient follows up with a Urologist in [facility]. 5. Diabetes mellitus controlled. 6. Mildly elevated blood pressures during the hospital course. The patient has been advised to follow up with his primary care doctor with about a month of blood pressure readings to make sure that he is a true hypertensive outside the hospital setting before committing him to medications. DISCHARGE MEDICATIONS: 1. Aspirin 81 mg p.o. daily. 2. Loratadine 10 mg p.o. daily. 3. Metformin 500 b.i.d. 4. Sertraline 100 mg b.i.d. 5. Simvastatin 40 mg p.o. daily. 6. Augmentin 875 b.i.d. 7. Omeprazole 20 mg p.o. daily. IMAGING STUDIES OF SIGNIFICANCE: 1. A CT scan of the head done on 03/03/2019 showed no visible acute intracranial pathology. An elbow and hip x-rays were unremarkable. A chest x-ray done on 03/03/2019 showed mildly shallow inspiration. No evidence of acute disease. 2. An echocardiogram done on 03/04/2019 showed an ejection fraction of 60% to 65%. No wall motion abnormality. 3. A myocardial perfusion scan shows ejection fraction of 62%. No evidence of ischemia. 4. An MRI of the brain completely negative. 5. A carotid ultrasound was also negative. PRESENTING COMPLAINT: Dizziness and fall. HISTORY OF PRESENTING COMPLAINT: Mr. Corea is a 68-year-old male who has had history of multiple dizziness episodes in the past, went fishing with a friend. He said he stood up to go and do something on the deck. He felt dizzy and fell, hitting his back. He said he could not actually hold back, but he denies any pre monitoring signs. He denies any loss of consciousness. He did not have any seizures. He did not have any sphincter incontinence. Mr. Corea came to the emergency department, and he was evaluated and admitted for dizziness workup. HOSPITAL COURSE: Mr. Corea was admitted to the [facility]. He was evaluated with orthostatic vitals which were negative. Cardiology was consulted. Patient was seen by Dr. Santana. After an extensive workup, Dr. Santana believes this is noncardiac, however, Mr. Corea continues to have bigeminy and PVCs. However, there has not been any dizziness during the hospital associated with the findings on the EKG and the telemetry monitoring. Mr. Corea was also evaluated by Neurology. Per Dr. Aguilera's documentation, he does not believe that this is neurological. I spoke personally with Dr. Aguilera today before Mr. Corea got discharged. He is willing to see him on outpatient base, but from our discussion, he said he did not think this was neurological. Mr. Corea has a history of issues with his prostate, and he had a TURP about [address] Arsenio Awan in [facility]. According to Mr. Corea, he has been doing well without any problem from that standpoint. His urinalysis was slightly pathological with some WBC's and leukocytes. However, nitrate was positive. The urine culture showed mixed bill, but no growth. Last night, Mr. Corea did have an episode where he fell back. According to him, he said his legs got entangled in the sheet and then he fell but he was not feeling dizzy. night monitor according to Cardiology report suggests that he did have a couple of bigeminy. This morning Mr. Corea is stable. He denies any complaints. He denies any dizziness. No syncopal episode. He thinks he is feeling well. He has been well hydrated during the hospital course. He is going to follow up with Dr. Santana to decide on possibly an event monitoring since we have not seen anything during the hospital course. Mr. Corea will also follow up with Dr. Aguilera. As I said during the hospital course, his blood pressures were slightly elevated and occasionally normal readings. He has been advised to follow up with his primary care doctor on that. I did not start him on any medications because he denies to be hypertensive. Mr. Corea also complains of a lot of stuffiness in the nose and a lot of upper respiratory tract manifestations associated with chronic cough so we have advised that he follows up with Pulmonary Medicine (Dr. Magallanes), and also an ENT to rule out any allergic upper airway/sinus disease. All the discharge instructions have been discussed with Mr. Corea. He has also been advised to stay away from going up on heights, and also not to be involved in any risky sports whereby dizziness or altered mentation could jeopardize his life. TIME SPENT: Time spent for discharge is 40 minutes. cc: MD Esdras Diamond MD Dr. Harney Eston G. Norwood III, MD James E. Boyle, MD Sage K. Copeland, MD MTDD
== END 2019-03-06 11:43 | disposition home or self-care (01) | DRG 149 ==
LOC: ED 18:03 → SUATTDRO 23:29 → 2N 23:29
PROVIDERS: ATTEND Internal Medicine